=== PATIENT | male | born 1990 | race Caucasian/White ===

== ENCOUNTER 2017-12-03 05:34 | Outpatient (CLI) | payer BC ==
[~2017-12-03] VITALS: Ht 170.2 cm; Wt 49.9 kg
[2017-12-03] MEDS ORDERED: LORA10TA7 PO (16:14)
== END 2017-12-03 16:22 ==
LOC: PREOP 05:34
PROVIDERS: ATTEND Urology
DX: Z01.818 Encounter for other preprocedural examination (principal); I86.1 Scrotal varices

== ENCOUNTER 2017-12-09 05:59 | Day surgery (SDC) | payer BC ==
[~2017-12-09] VITALS: Ht 170.2 cm; Wt 49.9 kg
[~2017-12-09 05:59] MED LIST: LORA10TA7 PO
--- OUTSIDE RECORDS SUMMARY | 2017-12-09 06:03 | XMS REPORT ---
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
--- OUTSIDE RECORDS SUMMARY | 2017-12-09 06:03 | XMS REPORT ---
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
--- OUTSIDE RECORDS SUMMARY | 2017-12-09 06:03 | XMS REPORT ---
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 [id number] ALLERGIES No Known Allergies SOCIAL HISTORY Never Assessed PLAN OF CARE Activity Details Follow Up will determine based on lab results Reason: VITAL SIGNS Height 67 in 2017-03-11 Weight 126.9 lbs 2017-03-11 Temperature 96.6 degrees Fahrenheit 2017-03-11 Heart Rate 78 bpm 2017-03-11 Respiratory Rate 18 2017-03-11 BMI 19.87 kg/m2 2017-03-11 Blood pressure systolic 100 mmHg 2017-03-11 Blood pressure diastolic 60 mmHg 2017-03-11 MEDICATIONS Unknown Medications RESULTS Name Result Date Reference Range TESTOSTERONE, FREE AND TOTAL 2017-03-11 Testosterone, Serum 480 [id number] Comment: Free Testosterone(Direct) 14.1 9.3-26.5 THYROID ANALYZER 2017-03-11 TSH 2.200 0.450-4.500 Request Problem TNP CBC 2017-03-11 WBC TNP LIPID PANEL 2017-03-11 Cholesterol, Total 160 100-199 Triglycerides 124 0-149 HDL Cholesterol 55 >39 VLDL Cholesterol Lucio 25 5-40 LDL Cholesterol Calc 80 0-99 CMP 2017-03-11 Glucose, Serum 68 65-99 BUN 12 6-20 Creatinine, Serum 0.92 0.76-1.27 eGFR If NonAfricn Am 116 >59 eGFR If Africn Am 134 >59 BUN/Creatinine Ratio 13 9-20 Sodium, Serum 141 134-144 Potassium, Serum 4.3 3.5-5.2 Chloride, Serum 99 96-106 Carbon Dioxide, Total 23 18-29 Calcium, Serum 9.4 8.7-10.2 Protein, Total, Serum 7.3 6.0-8.5 Albumin, Serum 4.6 3.5-5.5 Globulin, Total 2.7 1.5-4.5 A/G Ratio 1.7 1.2-2.2 Bilirubin, Total 0.5 0.0-1.2 Alkaline Phosphatase, S 67 39-117 AST (SGOT) 19 0-40 ALT (SGPT) 15 0-44 Status Report 2017-03-11 Status Report PROCEDURES Procedure Date Ordered Result Body Site ROUTINE VENIPUNCTURE 2017-03-11 N/A COMPLETE CBC W/AUTO DIFF WBC March 11, 2017 ASSAY OF TESTOSTERONE March 11, 2017 LIPID PANEL March 11, 2017 COMPREHEN METABOLIC PANEL March 11, 2017 ASSAY OF TOTAL TESTOSTERONE March 11, 2017 ASSAY THYROID STIM HORMONE March 11, 2017 IMMUNIZATIONS No Known Immunizations MEDICAL (GENERAL) HISTORY Type Description Date Medical History Acid Reflux
[2017-12-09] MEDS ORDERED: MIDAZOLAM 2 MG/2 ML (VERSED) VIAL ONE ×2 (06:20→06:44)
[2017-12-09] MEDS ORDERED: ONDANSETRON 4 MG/2 ML (SDV) Z0FRAN ONE ×2 (06:20→07:37)
[2017-12-09] MEDS: LACTATED RINGERS 1,000 ML IV PRN ×2 (06:20→10:13)
[2017-12-09] MEDS ORDERED: FAMOTIDINE 20MG/2ML IV (PEPCID) ONE (06:21)
[2017-12-09 06:25] VITALS: BP 116/80
[2017-12-09] MEDS ORDERED: MIDAZOLAM 2 MG/2 ML (VERSED) VIAL IV ONE (06:30)
[2017-12-09] MEDS ORDERED: ONDANSETRON 4 MG/2 ML (SDV) Z0FRAN IV ONE (06:30)
[2017-12-09] MEDS ORDERED: FAMOTIDINE 20MG/2ML IV (PEPCID) IV ONE (06:30)
[2017-12-09] MEDS ORDERED: ceFAZolin 1,000 MG (ANCEF) VIAL ONE (06:43)
[2017-12-09] MEDS ORDERED: NS (IVPB) 50 ML ONE (06:43)
[2017-12-09] MEDS ORDERED: fentaNYL INJECTION 100 MCG/2 ML AMP ONE (06:44)
[2017-12-09] MEDS ORDERED: HYDR-3812 PO (07:09)
--- NOTE | 2017-12-09 07:12 | Progress Note-Pre Operative ---
Pre-Operative Progress Note H&P Reviewed The H&P was reviewed, patient examined and no changes noted. Date Seen by Provider: Dec 09, 2017 Time Seen by Provider: 07:12 Date H&P Reviewed: Dec 09, 2017 Time H&P Reviewed: 07:12 Pre-Operative Diagnosis: LT GRADE 2 VARICOCELE ALEXANDRA DIAZ MD Dec 09, 2017 7:12 am
--- NOTE | 2017-12-09 07:13 | Progress Note-Post Operative ---
Post-Operative Progess Note Surgeon (s)/District Sales Coordinator (s) Surgeon ALEXANDRA DIAZ MD District Sales Coordinator: N/A Pre-Operative Diagnosis LT GRADE 2 VARICOCELE Post-Operative Diagnosis SAME Procedure & Operative Findings Date of Procedure 12/09/17 Procedure Performed/Findings LT SPERMATIC VEIN LIGATION Anesthesia Type GENERAL Estimated Blood Loss Estimated blood loss (mL): NEGLIGIBLE Specimens/Packing Specimens Removed LT SPERMATIC VEINS Packing: N/A ALEXANDRA DIAZ MD Dec 09, 2017 7:13 am
[2017-12-09] MEDS ORDERED: ceFAZolin INJECTION 1,000 MG in NS (IVPB) 50 ML IV ONE (07:15)
--- NOTE | 2017-12-09 07:16 | Discharge Inst-Urology ---
Discharge Inst-Urology Discharge Medications New, Converted, or Re-newed RX: RX on Chart Patient Instructions/Follow Up Plan Please make appointment to been seen in office in 2 weeks. Rest till then Ice to Lt groin and scrotum in RR and at home for 6 hrs and then PRN Tomorrow start showers, no bath Keep bowels soft and moving Increase oral fluids for 48 hours and then as needed. If questions or concerns contact your physician Or seek help at emergency department. ALEXANDRA DIAZ MD Dec 09, 2017 7:16 am
[2017-12-09] MEDS ORDERED: proPOfol 200 MG/20 ML (DIPRIVAN) VIAL IV ONE (07:37)
[2017-12-09] MEDS ORDERED: SEVOFLURANE (ULTANE) 15 ML INHAL SOLN ONE ×4 (07:37→08:26)
[2017-12-09] MEDS ORDERED: LIDOCAINE PF 2% 5 ML (XYLOCAINE) VIAL ONE (07:37)
[2017-12-09] MEDS ORDERED: DEXAMETHASONE 10 MG/ML (DECADRON) 1 ML VIAL ONE (07:37)
[2017-12-09] MEDS ORDERED: ONDANSETRON 4 MG/2 ML (SDV) Z0FRAN IVP PRN (08:00)
[2017-12-09] MEDS: morphine INJ 10 MG/ML 1ML (SYR OR VIAL) IVP PRN ×2 (08:40→08:52)
[2017-12-09] MEDS: MEPERIDINE (DEMEROL) INJ 50 MG/ML IVP PRN ×2 (08:57→09:07)
[2017-12-09 09:30] VITALS: BP 111/73
[2017-12-09] MEDS ORDERED: HYDROcodone/APAP 5 MG/325 MG (LORTAB) TAB ONE (09:35)
[2017-12-09 10:00] VITALS: BP 109/69
[2017-12-09 10:30] VITALS: BP 118/69
[2017-12-09 10:54] VITALS: BP 118/69
--- NOTE | 2017-12-09 12:44 | OPERATIVE REPORT ---
DATE OF SERVICE: 12/09/2017 PREOPERATIVE DIAGNOSIS: Symptomatic grade 2 left varicocele. POSTOPERATIVE DIAGNOSIS: Symptomatic grade 2 left varicocele. OPERATION PERFORMED: Left spermatic vein ligation. SURGEON: Alexandra Diaz MD. ANESTHESIA: General. COMPLICATIONS: None. DESCRIPTION OF PROCEDURE: With the patient in supine and under satisfactory general anesthesia, the abdomen, genitalia and thighs were prepped and draped in usual sterile fashion. An incision was made in the left inguinal area, carried through the skin, subcutaneous tissue. The external oblique aponeurosis was incised along the direction of the fiber. The ilioinguinal nerve was identified and preserved at all time including closure. Spermatic cord was identified. A loop was passed around it. At the level of the internal ring, the two spermatic veins were identified and a good portion of them were excised and then ligated with 3-0 silk. Hemostasis was complete. There was no significant vein in the floor of the inguinal canal. Spermatic cord was replaced in position. Closure was performed in layer, the external oblique with interrupted 2-0 silk sutures taking care to avoid the inguinal nerve. The Helga's fascia and subcutaneous tissues with interrupted 3-0 plain and the skin with a 4-0 Vicryl subcuticular suture. Steri-Strips and Op-Site was applied. Needle, sponge and instruments counts correct x2. Estimated blood loss negligible, none of which was replaced. The patient tolerated the procedure and anesthesia well and was sent to recovery room in stable condition. Instructions were given to the and before the surgery to the patient. Job ID: [id number] DocumentID: [id number] Dictated Date: 12/09/2017 08:30:14 Policy Analyst Date: 12/09/2017 12:43:40 Dictated By: ALEXANDRA DIAZ MD
== END 2017-12-09 11:00 | disposition home or self-care (01) ==
LOC: SDC 05:59
PROVIDERS: ATTEND Urology
DX: I86.1 Scrotal varices (principal)
CPT/HCPCS: 87081